=== PATIENT | female | born 1995 | race Caucasian/White ===

== ENCOUNTER 2017-02-10 19:57 | Emergency (ER) | payer OTHER ==
[2017-02-10 20:32] VITALS: BP 114/64; PULSE 67; TEMP 97.6; BMI 42.9
[2017-02-10] MEDS ORDERED: DIPHTH,PERTUSS(ACELL),TET 0.5 ML DISP.SYRIN IM ONE (21:39)
[2017-02-10] MEDS ORDERED: RABIES IMMUNE GLOBULIN 300 UNITS/2 ML VIAL IM ONE (21:39)
[2017-02-10] MEDS ORDERED: RABIES VACCINE (PCEC)/PF 2.5 UNIT/VIAL IM ONE (21:39)
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
[2017-02-10] MEDS ORDERED: RABIES IMMUNE GLOBULIN 300 UNITS/2 ML VIAL ONE (21:59)
== END 2017-02-10 23:10 | disposition home or self-care (01) ==
LOC: SUPCPDRO 19:57 → JERFT 19:57
PROC: 3E0234Z Introduction of Serum, Toxoid and Vaccine into Muscle, Percutaneous Approach (ICD-10-PCS; principal; 2017-02-10)
PROC: 3E0234Z Introduction of Serum, Toxoid and Vaccine into Muscle, Percutaneous Approach (ICD-10-PCS; 2017-02-10)
DX: S61.251A Open bite of left index finger without damage to nail, initial encounter (principal); W54.0XXA Bitten by dog, initial encounter; Y93.K9 Activity, other involving animal care; Y92.838 Other recreation area as the place of occurrence of the external cause; Y99.8 Other external cause status
CPT/HCPCS: 90375; 90471; 90675; 90715; 96372; 99281-25

== ENCOUNTER 2019-07-16 09:19 | Emergency (ER) | payer OTHER ==
[2019-07-16 09:25] VITALS: BP 123/86; PULSE 70; TEMP 98.4; BMI 51.0
--- NOTE | 2019-07-16 09:52 | PDOC ---
History of Present Illness - General Chief Complaint: Abscess Boil Stated Complaint: BREAST LUMP Time Seen by Provider: 07/16/19 09:33 - History of Present Illness Initial Comments: 07/16/19 09:52 CHIEF COMPLAINT: breast mass HISTORY OF PRESENT ILLNESS: 23 yo F with no PMH presents to [facility] with concern of lump to R breast. Patient reports first noticing the mass 3 days ago. She denies any pain or tenderness to the mass. Denies any fever, chills, nausea, vomiting, or diarrhea. She denies any history of cancer or breast cancer in the family. No recent travel or sick contacts. PAST MEDICAL HISTORY: Denies past medical history FAMILY HISTORY: Denies SOCIAL HISTORY:Denies tobacco, alcohol, illicit drug use. SURGICAL HISTORY: Denies ALLERGIES: No known drug allergies REVIEW OF SYSTEMS General/Constitutional: Denies fever or chills. Denies weakness, weight change. HEENT: Denies change in vision. Denies ear pain or discharge. Denies sore throat. Cardiovascular: Denies chest pain or shortness of breath. Respiratory: Denies cough, wheezing, or hemoptysis. Gastrointestinal: Denies nausea, vomiting, diarrhea or constipation. Denies rectal bleeding. Genitourinary: Denies dysuria, frequency, or change in urination. Musculoskeletal: Denies joint or muscle swelling or pain. Denies neck or back pain. Skin and breasts: "I found a lump on my breast." Neurologic: Denies headache, vertigo, loss of consciousness, or loss of sensation. Psychiatric: Denies depression or anxiety. PHYSICAL EXAM General Appearance: Well-appearing, appropriately dressed. No apparent distress , no intoxication. HEENT: EOMI, PERRLA, normal ENT inspection, normal voice, TMs normal, pharynx normal. No conjunctival pallor. No photophobia, scleral icterus. Neck: Supple. Trachea midline. No tenderness, rigidity, carotid bruit, stridor , lymphadenopathy, or thyromegaly. Respiratory/Chest: Lungs CTAB. No shortness of breath, chest tenderness, respiratory distress, accessory muscle use. No crackles, rales, rhonchi, stridor , wheezing, dullness Cardiovascular: RRR. S1, S2. No JVD, murmur, bradycardia, tachycardia. Vascular Pulses: Dorsalis-Pedis (R): 2+, Dorsalis-Pedis (L): 2+ Gastrointestinal/Abdominal: Normal bowel sounds. Abdomen soft, non-distended. No tenderness or rebound tenderness. No organomegaly, pulsatile mass, guarding , hernia, hepatomegaly, splenomegaly. Lymphatic: No adenopathy, tenderness. Musculoskeletal/Extremities: Normal inspection. FROM of all extremities, normal capillary refill. Pelvis Stable. No CVA tenderness. No tenderness to extremities, pedal edema, swelling, erythema or deformity. Integumentary: Mobile, nontender, cystic mass to R medial breast at 2'oclock of nipple. No erythema, tenderness, swelling, streaking. Appropriate color, dry, warm. 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 Fully oriented, alert. Appropriate mood/affect. Motor strength 5/5. No appreciable EOM palsy, facial droop or sensory deficit. 07/16/19 10:06 Past History - Past Medical History Allergies/Adverse Reactions: Allergies Allergy/AdvReac Type Severity Reaction Status Date / Time No Known Allergies Allergy Verified 02/10/17 20:32 COPD: No Disorders: No Liver Disease: No - Immunization History Immunization Up to Date: No - Psycho Social/Smoking Cessation Hx Smoking History: Current some day smoker Have you smoked in the past 12 months: No Information on smoking cessation initiated: No Hx Alcohol Use: Yes Drug/Substance Use Hx: No Substance Use Type: None *Physical Exam - Vital Signs Last Vital Signs Temp Pulse Resp BP Pulse Ox 98.4 F 70 20 123/86 100 07/16/19 09:23 07/16/19 09:23 07/16/19 09:23 07/16/19 09:23 07/16/19 09:23 ED Treatment Course - ADDITIONAL ORDERS Additional order review: Laboratory Results 07/16/19 09:34 Urine HCG, Qual Negative Medical Decision Making - Medical Decision Making 07/16/19 10:08 23 yo F with no PMH presents to [facility] with concern of lump to R breast. Likely benign breast cyst. Discussed with recommendation for f/u with PCP/ OBGYN for outpatient mammogram, patient and mother verbalized understanding and agree to plan. Discharge - Discharge Information Problems reviewed: Yes Clinical Impression/Diagnosis: Breast cyst Qualifiers: Laterality: right Qualified Code(s): N60.01 - Solitary cyst of right breast Condition: Stable Disposition: HOME - Admission No - Follow up/Referral Referrals: Diana Laurent DO [Staff Physician] - Lobito Leigh MD [Primary Care Provider] - - Patient Discharge Instructions Patient Printed Discharge Instructions: DI for Breast Cyst Additional Instructions: As discussed, please follow up with Dr. Leigh and your OBGYN (referral provided ) for further evaluation and monitoring of your breast mass. If you develop any new or worsening symptoms, please return to the ER. - Post Discharge Activity
== END 2019-07-16 10:16 | disposition home or self-care (01) ==
LOC: JERFT 09:19
DX: N60.09 Solitary cyst of unspecified breast (principal); F17.210 Nicotine dependence, cigarettes, uncomplicated
CPT/HCPCS: 84703; 99281-25

== ENCOUNTER 2021-03-24 18:22 | Emergency (ER) | payer OTHER ==
[2021-03-24 18:27] VITALS: BP 118/81; PULSE 90; TEMP 97; BMI 51.6
[2021-03-24 20:57] LABS: EPI CELLS >36 /uL (0-25.1); HCG,QUALITATIVE URINE Negative; HYALINE CASTS 19 /uL (0-3.1); PH,URINE 5.5 (5.0-8.0); URINE APPEARANCE TURBID; URINE BACTERIA >9,000 /uL (0-1359); URINE BILIRUBIN 1+ (NEGATIVE); URINE COLOR DK YELLOW; URINE GLUCOSE (UA) NEGATIVE (NEGATIVE); URINE KETONE 1+ (NEGATIVE); URINE LEUK ESTERASE 3+ (NEGATIVE); URINE NITRITE NEGATIVE (NEGATIVE); URINE PROTEIN 1+ (NEGATIVE); URINE RBC 41 /uL (0-23.9); URINE WBC 487 /uL (0-25.8)
[2021-03-24 21:42] LABS: URINE CRYSTALS FEW /hpf
== END 2021-03-24 22:15 | disposition home or self-care (01) ==
LOC: JER 18:22
DX: N30.00 Acute cystitis without hematuria (principal); K59.00 Constipation, unspecified
CPT/HCPCS: 36415; 81003; 84703; 87491; 87591; 99283-25

== ENCOUNTER 2022-11-09 16:51 | Emergency (ER) | payer OTHER ==
[2022-11-09 17:00] VITALS: BMI 48.9
[2022-11-09] MEDS ORDERED: diazePAM 5 MG TABLET PO ONE (19:21)
[2022-11-09] MEDS ORDERED: diazePAM 5 MG TABLET ONE (20:48)
[2022-11-09 20:52] LABS: BASO % 0.6 % (0-2.0); EOS % 0.8 % (0-4.5); HEMATOCRIT 39.9 % (32.4-45.2); HEMOGLOBIN 13.5 GM/dL (10.7-15.3); LYMPH % 23.6 % (8-40); MCH 30.3 pg (25.7-33.7); MCHC 33.9 g/dl (32.0-36.0); MEAN CELL VOLUME 89.6 fl (80-96); MONO % 15.2 % (3.8-10.2); NEUT % 59.8 % (42.8-82.8); PLATELET COUNT 402 10^3/uL (134-434); RBC 4.45 M/mm3 (3.60-5.2); RDW 13.2 % (11.6-15.6); WHITE BLOOD COUNT 5.5 K/mm3 (4.0-10.0)
[2022-11-09 21:12] LABS: CHLORIDE 107 mmol/L (98-107); SODIUM 139 mmol/L (136-145)
[2022-11-09 21:15] LABS: ALBUMIN 3.7 g/dl (3.4-5.0); ANION GAP 6 MMOL/L (8-16); BLOOD UREA NITROGEN 8.2 mg/dL (7-18); CALCIUM 9.3 mg/dL (8.5-10.1); CO2 26 mmol/L (21-32); GLUCOSE,RANDOM 94 mg/dL (74-106)
[2022-11-09 21:19] LABS: CREATININE 0.7 mg/dL (0.55-1.3); SGOT/AST 20 U/L (15-37); SGPT/ALT 32 U/L (13-61)
[2022-11-09 21:21] LABS: BILIRUBIN,TOTAL 0.5 mg/dL (0.2-1); TOT PROT 6.9 g/dl (6.4-8.2)
[2022-11-09 21:22] LABS: ALK PHOS 64 U/L (45-117)
[2022-11-09 21:26] VITALS: RESP 18
[2022-11-09 22:15] LABS: COCAINE, UR NEGATIVE (NEGATIVE); METHADONE, UR NEGATIVE (NEGATIVE); OPIATES, URI NEGATIVE (NEGATIVE); PHENCYCLIDINE,URINE NEGATIVE (NEGATIVE); URINE AMPHETAMINES NEGATIVE (NEGATIVE); URINE BARBITURATES NEGATIVE (NEGATIVE); URINE BENZODIAZEPINES NEGATIVE (NEGATIVE)
[2022-11-10] MEDS ORDERED: hydrOXYzine HCL 100 MG/2 ML VIAL IM ONE (01:20)
[2022-11-10 11:56] VITALS: BP 127/82; PULSE 85; TEMP 98.1
== END 2022-11-10 11:30 | disposition home or self-care (01) ==
LOC: JER 16:51
PROC: 3E023GC Introduction of Other Therapeutic Substance into Muscle, Percutaneous Approach (ICD-10-PCS; principal; 2022-11-09)
DX: F43.0 Acute stress reaction (principal); R45.851 Suicidal ideations
CPT/HCPCS: 0241U-QW; 36415; 80053; 80307; 82550; 84443; 84703; 85025; 93005; 93010; 96372; 99285-25